=== PATIENT | female | born 1995 | race American Indian/Alaskan Native ===

== ENCOUNTER 2019-05-30 21:56 | Emergency (ER) | payer SELFPAY ==
--- NOTE | 2019-05-31 00:35 | Emergency Department Report ---
- General Chief Complaint: Skin/Abscess/Foreign Body Stated Complaint: LEG ABCESS Time Seen by Provider: 05/31/19 00:33 Source: patient Mode of arrival: Ambulatory Limitations: No Limitations - History of Present Illness Initial Comments: 23-year-old -[place] female presents to the emergency room complaining of abscess to her left inner thigh 1 week. Patient states that it had reduced she had drainage from it. Patient reports now she has a hole in her left inner thigh. She denies any fever chills no nausea no vomiting. She denies any pain. She has a past medical history of asthma currently takes no medications on a daily basis and has no known drug allergies Onset/Timin -: week(s) Extremity Location: Left: Thigh (inner thigh) Patient Tetanus UTD: Yes Associated Symptoms: none - Related Data Previous Rx's Medication Instructions Recorded Last Taken Type cephALEXin [Keflex] 500 mg PO Q12HR #20 cap 05/31/19 Unknown Rx Allergies Allergy/AdvReac Type Severity Reaction Status Date / Time No Known Allergies Allergy Unverified 05/30/19 22:01 ED Review of Systems ROS: Stated complaint: LEG ABCESS Other details as noted in HPI Comment: All other systems reviewed and negative ED Past Medical Hx - Past Medical History Previous Medical History?: Yes Hx Asthma: Yes - Surgical History Past Surgical History?: No - Social History Smoking Status: Never Smoker Substance Use Type: None - Medications Home Medications: Home Medications Medication Instructions Recorded Confirmed Last Taken Type cephALEXin [Keflex] 500 mg PO Q12HR #20 cap 05/31/19 Unknown Rx ED Physical Exam - General Limitations: No Limitations General appearance: alert, in no apparent distress - Head Head exam: Present: atraumatic, normocephalic - Eye Eye exam: Present: normal appearance - ENT ENT exam: Present: mucous membranes moist - Neck Neck exam: Present: normal inspection, full ROM - Neurological Exam Neurological exam: Present: alert, oriented X3, normal gait - Psychiatric Psychiatric exam: Present: normal affect, normal mood - Expanded Skin Exam Expanded Description of rash: Present: size (ervin size open with granulation no active drainage or bleeding no tender), erythematous, indurated. Absent: tenderness, fluctuant ED Course Vital Signs 05/30/19 05/30/19 22:00 22:22 Temperature 98.1 F 98.1 F Pulse Rate 98 H 98 H Respiratory 18 18 Rate Blood Pressure 138/86 138/86 O2 Sat by Pulse 97 97 Oximetry ED Medical Decision Making - Medical Decision Making 23-year-old -[place] female presents to the emergency room complaining of abscess to her left inner thigh 1 week. Patient states that it had reduced she had drainage from it. Patient reports now she has a hole in her left inner thigh. She denies any fever chills no nausea no vomiting. She denies any pain. She has a past medical history of asthma currently takes no medications on a daily basis and has no known drug allergies. Patient will be placed on Keflex and can take [id number] Tylenol or Motrin if she has developed any pain. Patient [facility] Critical care attestation.: If time is entered above; I have spent that time in minutes in the direct care of this critically ill patient, excluding procedure time. ED Disposition Clinical Impression: Cellulitis of left thigh Disposition: [id number] TO HOME OR SELFCARE Is pt being admited?: No Does the pt Need Aspirin: No Condition: Stable Instructions: Cellulitis (ED) Additional Instructions: Complete antibiotics as prescribed. You can take over the counter Tylenol and/or Motrin for pain. [facility] in [facility] next 2-3 days. Prescriptions: cephALEXin [Keflex] 500 mg PO Q12HR #20 cap Referrals: PRIMARY CARE, [Primary Care Provider] - 3-5 Days [facility] [Outside] - 3-5 Days
[2019-05-31 03:34] VITALS: BP 128/64
== END 2019-05-31 01:40 | disposition home or self-care (01) ==
LOC: ED 21:56
DX: L03.116 Cellulitis of left lower limb (principal); J45.909 Unspecified asthma, uncomplicated
CPT/HCPCS: 99282